=== PATIENT | male | born 1990 | race Caucasian/White ===

== ENCOUNTER 2016-04-20 13:31 | Emergency (ER) | payer MEDICAID ==
--- NOTE | 2016-04-20 14:23 | EDPHY ---
H & P Time Seen by Provider: 04/20/16 13:42 HPI/ROS: CHIEF COMPLAINT: fever, chest pain HISTORY OF PRESENT ILLNESS: Patient is a 25-year-old male who presents to the emergency department with fever and mild chest discomfort with cough. Patient states that he just returned from a 10 day trip from [place]. On 04/13/2016 developed diarrhea. He took an over the counter medication called "Diarrescue. " This did not change his symptoms. He took his mom's antibiotics, cefixime, x 3 days. His diarrhea resolved and he felt better. States that while improved he hurt his left foot. Upon returning home he continued to have left foot pain. There is no puncture wound or laceration. He thought I broke my foot. Went to urgent care on 04/18/2016 and had a negative foot x-ray. His foot pain has improved. However on the he woke up feeling crappy. He noted that he had a fever to 102. He complains of mild lower substernal chest discomfort with occasional nonproductive cough. No shortness of breath or dyspnea on exertion. No calf pain or swelling. Patient states that his diarrhea has completely improved. He has no abdominal symptoms. He denies nausea or vomiting. He has had no dysuria or frequency. He denies neck pain or stiffness. No headache or visual change. He has no sore throat. He has not noticed any rash. REVIEW OF SYSTEMS: My complete review of systems is negative except as mentioned in the HPI. Past Medical/Surgical History: Negative Past surgical history: Negative Social history: The patient does not smoke or use drugs. Smoking Status: Current some day smoker Physical Exam: 39.4, 145/83, 114, 20, 96% on room air GENERAL: Well-appearing -patient appears better than his temperature and heart rate would indicate. No acute distress, alert. HEENT: Eyes normal to inspection, normal pharynx, no signs of dehydration. NECK: No thyromegaly, no lymphadenopathy, supple. No meningismus RESPIRATORY: Clear to auscultation bilaterally, no rales, rhonchi or wheezing. CVS: Regular rate and rhythm, no rubs, murmurs, or gallops. ABDOMEN: Soft, nontender, nondistended, no organomegaly. Benign BACK: Normal to inspection, no CVA tenderness. SKIN: Normal color, no rash, warm, dry. No pallor. EXTREMITIES: No pedal edema, no calf tenderness, no joint swelling. NEURO/PSYCH: Alert and oriented x3, normal mood and affect, normal motor sensory exam. No obvious cranial nerve deficit. Constitutional: Initial Vital Signs Temperature (C) 39.4 C H 04/20/16 13:33 Heart Rate 114 H 04/20/16 13:33 Respiratory Rate 20 04/20/16 13:33 Blood Pressure 145/83 H 04/20/16 13:33 O2 Sat (%) 96 04/20/16 13:33 O2 Delivery Mode Room Air Allergies/Adverse Reactions: No Known Allergies Allergy (Unverified 04/20/16 13:33) Home Medications: Medication Instructions Recorded Cefixime 04/20/16 Finasteride 04/20/16 Medical Decision Making ED Course/Re-evaluation: In the emergency department an IV was placed. The patient was given a L of normal saline for hydration. Laboratory studies, EKG, chest x-ray and urine were sent. I will order stool sample since the patient is able to have a bowel movement. Patient was given Toradol 30 mg IV for fever discomfort. I discussed the plan with the patient answers questions. I rechecked the patient on numerous occasions. He looks well on his recheck. Had no new complaints. Discussed the patient's laboratory studies. Flu is negative. White count was normal. Lactate was 1.9. CO2 is minimally low at 21. Urine was negative. Chest x-ray: Please refer the dictated report by Dr. Santiago. Patient has bronchitis. No focal infiltrate or pneumonia. I discussed the case with Dr. Bryant Altamirano on the phone. He is not feel the patient needs further testing for malaria or other infectious Disease. 16 45: I discussed the results with the patient again. I answered all his questions. On recheck he was doing well. No respiratory distress. His abdomen was benign. I gave him warnings prior to leaving. He will return with worsening symptoms. Differential Diagnosis: My differential includes but is not limited to bacteremia, sepsis, pneumonia, bronchitis, infectious diarrhea, traveler's diarrhea, ameoba or worm infection, malaria - Data Points Laboratory Results: Laboratory Results 04/20/16 14:05 04/20/16 14:05 04/20/16 04/20/16 15:25 14:05 WBC 6.43 10^3/uL (3.80-9.50) RBC 5.64 10^6/uL (4.40-6.38) Hgb 16.8 g/dL (13.7-17.5) Hct 46.8 % (40.0-51.0) MCV 83.0 fL (81.5-99.8) MCH 29.8 pg (27.9-34.1) MCHC 35.9 g/dL (32.4-36.7) RDW 11.7 % (11.5-15.2) Plt Count 268 10^3/uL (150-400) MPV 9.5 fL (8.7-11.7) Neut % (Auto) 67.8 % (39.3-74.2) Lymph % (Auto) 13.4 L % (15.0-45.0) [place] % (Auto) 17.1 H % (4.5-13.0) Eos % (Auto) 0.8 % (0.6-7.6) Baso % (Auto) 0.3 % (0.3-1.7) Nucleat RBC Rel Count 0.0 % (0.0-0.2) Absolute Neuts (auto) 4.36 10^3/uL (1.70-6.50) Absolute Lymphs (auto) 0.86 L 10^3/uL (1.00-3.00) Absolute Monos (auto) 1.10 H 10^3/uL (0.30-0.80) Absolute Eos (auto) 0.05 10^3/uL (0.03-0.40) Absolute Basos (auto) 0.02 10^3/uL (0.02-0.10) Absolute Nucleated RBC 0.00 10^3/uL (0-0.01) Immature Gran % 0.6 % (0.0-1.1) Immature Gran # 0.04 10^3/uL (0.00-0.10) PT 12.9 SEC (12.0-15.0) INR 0.98 (0.83-1.16) APTT 31.4 SEC (23.0-38.0) VBG Lactic Acid 1.9 mmol/L (0.7-2.1) Sodium 141 mEq/L (134-144) Potassium 3.8 mEq/L (3.5-5.2) Chloride 104 mEq/L (97-110) Carbon Dioxide 21 L mEq/l (22-31) Anion Gap 16 mEq/L (8-16) BUN 14 mg/dL (7-23) Creatinine 0.8 mg/dL (0.7-1.3) Estimated GFR > 60 Glucose 96 mg/dL (70-100) Calcium 9.5 mg/dL (8.5-10.4) Total Bilirubin 0.6 mg/dL (0.1-1.4) Urine Color YELLOW Urine Appearance CLEAR Urine pH 5.0 (5.0-7.5) Ur Specific [place] 1.018 (1.002-1.030) Urine Protein NEGATIVE (NEGATIVE) Urine Ketones NEGATIVE (NEGATIVE) Urine Blood NEGATIVE (NEGATIVE) Urine Nitrate NEGATIVE (NEGATIVE) Urine Bilirubin NEGATIVE (NEGATIVE) Urine Urobilinogen NEGATIVE EU (0.2-1.0) Ur Leukocyte Esterase NEGATIVE (NEGATIVE) Urine Glucose NEGATIVE (NEGATIVE) Influenza Typ A,B (DFA) NEGATIVE FOR FLU (NEGATIVE) Medications Given: Discontinued Medications Sodium Chloride (Ns) 1,000 mls @ 0 mls/hr IV ONCE ONE PRN Reason: Wide Open Stop: 04/20/16 14:28 Last Admin: 04/20/16 14:29 Dose: 1,000 mls Sodium Chloride (Ns) 1,000 mls @ 0 mls/hr IV ONCE ONE PRN Reason: Wide Open Stop: 04/20/16 14:29 Last Admin: 04/20/16 15:28 Dose: 1,000 mls Ketorolac Tromethamine (Toradol) 30 mg IVP EDNOW ONE Stop: 04/20/16 15:01 Last Admin: 04/20/16 15:05 Dose: 30 mg Departure - Departure Disposition: Home, Routine, Self-Care Clinical Impression: Bronchitis, Fever Condition: Good Instructions: Acute Bronchitis (ED), Fever in Adults (ED) Additional Instructions: Return to the emergency department with increasing fever, shortness of breath, cough, vomiting, diarrhea or any other concerns. Your laboratory studies were unremarkable. Your chest x-ray showed bronchitis. No pneumonia. You can take both acetaminophen and ibuprofen for fever control and discomfort. Referrals: Padmini Ewing MD [Medical Doctor] - 5-7 days, call for appt. Bryant Altamirano MD [Medical Doctor] - 5-7 days, if not improved
[2016-04-20] MEDS ORDERED: NS 1,000 ML IV ONE ×2 (14:27→14:28)
[2016-04-20 14:31] LABS: % IMMATURE GRANULYOCYTES 0.6 % (0.0-1.1); ABSOLUTE IMMATURE GRANULOCYTES 0.04 10^3/uL (0.00-0.10); ADD DIFF? NO; ADD MORPH? NO; ADD SCAN? YES; FRAGMENT RBC FLAG 0 (0-99); HEMATOCRIT 46.8 % (40.0-51.0); HEMOGLOBIN 16.8 g/dL (13.7-17.5); LEFT SHIFT FLG 0 (0-99); LIPEMIA HEMOLYSIS FLAG 90 (0-99); MEAN CELL HEMOGLOBIN 29.8 pg (27.9-34.1); MEAN CELL HEMOGLOBIN CONCENTR. 35.9 g/dL (32.4-36.7); MEAN PLATELET VOLUME 9.5 fL (8.7-11.7); PLATELET CLUMPS FLAG 10 (0-99); PLATELET COUNT 268 10^3/uL (150-400); RED BLOOD CELL COUNT 5.64 10^6/uL (4.40-6.38); RED CELL DISTRIBUTION WIDTH 11.7 % (11.5-15.2)
[2016-04-20 14:32] LABS: ATYPICAL LYMPHOCYTE FLAG 140 (0-99)
[2016-04-20 14:37] LABS: ANION GAP 16 mEq/L (8-16); BILIRUBIN,TOTAL 0.6 mg/dL (0.1-1.4); CALCIUM 9.5 mg/dL (8.5-10.4); CARBON DIOXIDE 21 mEq/l (22-31); CHLORIDE 104 mEq/L (97-110); CREATININE 0.8 mg/dL (0.7-1.3); GLOMERULAR FILTRATION RATE > 60; GLUCOSE 96 mg/dL (70-100); INR 0.98 (0.83-1.16); POTASSIUM 3.8 mEq/L (3.5-5.2); PROTIME(PATIENT) 12.9 SEC (12.0-15.0); SODIUM 141 mEq/L (134-144)
[2016-04-20 14:38] LABS: APTT 31.4 SEC (23.0-38.0)
--- NOTE | 2016-04-20 14:46 | DX ---
Chest, PA Upright and Lateral Views - April 20, 2016, at 2:11 p.m. Clinical History: 25-year-old male who has had a cough for 36 hours, and recent travel to [place]. Comparison Study: None. Findings: Telemetry monitoring lead lines are present. The cardiac and mediastinal silhouettes are no rmal in size. There is a moderate degree of central perihilar bronchial wall thickening. The inspirat ory depth is to the 11th posterior rib level. The above features are nonspecific, and could represent a viral-induced bronchitis, although reactive airways' disease (asthma) could have a similar appeara nce. There is no focal infiltrate, pleural effusion, peripheral interstitial edema, or pneumothorax. The trachea is midline. The osseous structures are age-appropriate. Impression: Moderate perihilar bronchitis. There is no focal infiltrate.
[2016-04-20] MEDS ORDERED: KETOROLAC 30 MG/1 ML SDV ONE (14:55)
[2016-04-20] MEDS ORDERED: KETOROLAC 30 MG/1 ML SDV IVP ONE (15:00)
[2016-04-20 15:29] VITALS: RESP 16
[2016-04-20 15:40] LABS: COLOR YELLOW; LEUKOCYTE ESTERASE,URINE NEGATIVE (NEGATIVE); NITRITE,URINE NEGATIVE (NEGATIVE)
[2016-04-20 15:46] LABS: SCAN NEGATIVE
[2016-04-20 17:08] VITALS: BP 119/72; PULSE 93; TEMP 99.7; O2SAT 96
== END 2016-04-20 17:26 | disposition home or self-care (01) ==
DX: J40 Bronchitis, not specified as acute or chronic (principal); F17.200 Nicotine dependence, unspecified, uncomplicated
CPT/HCPCS: 96374; J1885

== ENCOUNTER 2017-07-12 10:11 | Emergency (ER) | payer MEDICAID ==
[2017-07-12 10:19] VITALS: O2SAT 94
--- NOTE | 2017-07-12 10:32 | EDPHY ---
H & P Stated Complaint: cough, fever, x1 week Time Seen by Provider: 07/12/17 10:32 HPI/ROS: HPI: This is a 27-year-old male who presents with Chief Complaint: cough, fever, x1 week Location: Chest Quality: Cough Duration: 2 weeks Signs and Symptoms:+ fever for 2 days, no sore throat, + fatigue, + nonproductive cough, + body aches, no neck stiffness, + swollen glands, no ear pain, no nausea, no vomiting, no diarrhea, no urinary symptoms, no abdominal pain Timing: Worsening Severity: Moderate Context: Patient is generally healthy, + tobacco user, presents with a history of 2 week nonproductive cough that worsened over the last 2 days accompanied by fever T-max a 102 at home. He also reports that he had sudden onset of fatigue and body aches. Did not receive influenza vaccine this year. No history of lung disease. Reports decreased appetite but drinking fluids. No recent foreign travel. Taking [id number] medications with mild relief. Modifying Factors: See above Comment: ROS: see HPI Constitutional:+ fever, no chills, no weight loss Eyes: No blurred vision Respiratory: No shortness of breath, + cough Cardiovascular: No chest pain Gastrointestinal: No nausea, no vomiting, no diarrhea Genitourinary: No dysuria Extremities: No myalgias Neurologic: No weakness, no numbness Skin: No rashes Hematologic: No bruising, no bleeding MEDICAL/SURGICAL/SOCIAL HISTORY: Medical history: Generally healthy. Does not take any regular medications. Surgical history: Denies Social history: Employed. CONSTITUTIONAL: Polite and cooperative adult male, awake and alert, no obvious distress HEENT: Atraumatic and normocephalic, PERRL, EOMI. Tympanic membranes clear. Oropharynx clear, no exudate and moist pink mucosa. Airway patent. No lymphadenopathy. No meningismus. Cardiovascular: Normal S1/S2, tachycardia, regular rhythm, without murmur rub or gallop. PULMONARY/CHEST: Symmetrical and nontender. Clear to auscultation bilaterally. Good air movement. No accessory muscle usage. ABDOMEN: Soft, nondistended, nontender, no rebound, no guarding, no peritoneal signs, no masses or organomegaly. No CVAT. EXTREMITIES: 2/2 pulses, strength 5/5, no deformities, no clubbing, no cyanosis or edema. NEUROLOGICAL: no focal neuro deficits. GCS 15. SKIN: Warm and dry, no erythema. no rash. Good capillary refill. Source: Patient Exam Limitations: No limitations - Personal History Tetanus Vaccine Date: 2015 - Medical/Surgical History Hx Asthma: No Hx Chronic Respiratory Disease: No Hx Diabetes: No Hx Cardiac Disease: No Hx Renal Disease: No Hx Cirrhosis: No Hx Alcoholism: No Hx HIV/AIDS: No Hx Splenectomy or Spleen Trauma: No Other PMH: Denies - Social History Smoking Status: Current some day smoker Constitutional: Initial Vital Signs Temperature (C) 38.7 C H 07/12/17 10:17 Heart Rate 112 H 07/12/17 10:17 Respiratory Rate 18 07/12/17 10:17 Blood Pressure 154/81 H 07/12/17 10:17 O2 Sat (%) 94 07/12/17 10:17 O2 Delivery Mode Room Air Allergies/Adverse Reactions: No Known Allergies Allergy (Unverified 04/20/16 13:33) Home Medications: Medication Instructions Recorded Finasteride 04/20/16 Clarithromycin [Biaxin (*)] 500 mg PO BID 7 Days tab 07/12/17 Codeine Phosphate/Guaifenesin 10 ml PO Q6 PRN #473 ml 07/12/17 [Guaifenesin-Codeine Syrup] Medical Decision Making - Diagnostics Imaging Results: Imaging Impressions Chest X-Ray 07/12/17 10:36 Impression: Suspect right upper lobe pneumonia. Recommend follow-up chest radiograph in 4-6 weeks. ED Course/Re-evaluation: Chest x-ray, influenza test, oral medications ordered Given ibuprofen and Tessalon Perle Vital signs reviewed and tachycardia with fever. No hypoxia. Chest x-ray my read shows possible early development of right upper lobe pneumonia. Influenza negative Given prescription for Biaxin. No risk factors for TB. Has not had antibiotics in the last 3 months. Appropriate to treat outpatient as community-acquired. This patient was seen under the supervision of my secondary supervising physician. I evaluated care for this patient independently. Differential Diagnosis: Differential including but not limited to viral syndromes including influenza, bronchitis, strep pharyngitis, pneumonia and sepsis. - Data Points Laboratory Results: 07/12/17 10:20 Nasal Influenza A PCR NEGATIVE FOR FLU A (NEGATIVE) Nasal Influenza B PCR NEGATIVE FOR FLU B (NEGATIVE) Medications Given: Discontinued Medications Benzonatate (Tessalon Pearles) 200 mg PO EDNOW ONE Stop: 07/12/17 10:40 Last Admin: 07/12/17 10:44 Dose: 200 mg Ibuprofen (Motrin) 800 mg PO EDNOW ONE Stop: 07/12/17 10:39 Last Admin: 07/12/17 10:44 Dose: 800 mg Departure - Departure Disposition: Home, Routine, Self-Care Clinical Impression: Community acquired pneumonia Qualifiers: Laterality: right Lung location: upper lobe of lung Qualified Code(s): J18.1 - Lobar pneumonia, unspecified organism Condition: Good Instructions: Clarithromycin (By mouth), Narcotic-Antitussive/Decongestant/ Expectorant (By mouth), Community Acquired Pneumonia (ED) Additional Instructions: Chest x-ray shows early developing right upper lobe pneumonia. Rest as much as possible until you are feeling better. Consume a minimum of 8-10 glasses of water or electrolyte fluid replacement drinks that include Gatorade, Powerade, Pedialyte. Eat a bland diet for the next 48 hours and then slowly advance as tolerated. Take Tylenol 650 mg and/or Ibuprofen 600-800 mg every 8 hr as needed for pain, headache, fever. Take all of the Clarithromycin/Biaxin as directed for 7 days. Take Guaifenesin with Codeine cough syrup every 6 hr as needed for moderate to severe cough. Please wash your hands frequently, cover your cough, and stay home until you are symptom free. Referrals: [facility],. [Clinic] - As per Instructions Prescriptions: Clarithromycin [Biaxin (*)] 500 mg PO BID 7 Days tab Codeine Phosphate/Guaifenesin [Guaifenesin-Codeine Syrup] 10 ml PO Q6 PRN #473 ml PRN Reason: Cough, Moderate
[2017-07-12] MEDS ORDERED: IBUPROFEN 800 MG TAB PO ONE (10:38)
[2017-07-12] MEDS ORDERED: BENZONATATE 100 MG CAP PO ONE (10:39)
[2017-07-12 11:12] VITALS: BP 142/88; PULSE 102; RESP 16; TEMP 98.4
== END 2017-07-12 11:11 | disposition home or self-care (01) ==
DX: J18.1 Lobar pneumonia, unspecified organism (principal); F17.200 Nicotine dependence, unspecified, uncomplicated